=== PATIENT | male | born 1975 | race Hispanic/Latino ===

== ENCOUNTER 2023-04-15 07:44 | Outpatient (CLI) | payer BC | END 2023-04-15 07:45 | disposition home or self-care (01) | LOC: SCSMRI 07:44 | PROVIDERS: ATTEND Orthopaedic Surgery | DX: S83.241A Other tear of medial meniscus, current injury, right knee, initial encounter (principal); M70.51 Other bursitis of knee, right knee; M22.41 Chondromalacia patellae, right knee ==